=== PATIENT | female | born 1990 | race Caucasian/White ===

== ENCOUNTER 2016-09-24 21:54 | Inpatient (IN) | payer OTHER ==
[~2016-09-24] VITALS: Ht 160 cm; Wt 61.2 kg
[2016-09-24 22:28] LABS: BASOPHIL % 0.4 % (0-2); PLATELET COUNT 349 x10^3mcL (130-400); RED CELL DISTRIBUTION WIDTH 13.6 % (11.5-14.5)
[2016-09-24 22:43] LABS: CALCIUM 8.3 mg/dL (8.5-10.1); CARBON DIOXIDE 26.9 mmol/L (21-32); CHLORIDE SERUM 108 mmol/L (98-107); CREATININE SERUM 0.6 mg/dL (0.6-1.0); GFR1 > 60 mL/min; GLUCOSE SERUM 104 mg/dL (74-106); POTASSIUM SERUM 3.6 mmol/L (3.5-5.1); SODIUM SERUM 146 mmol/L (136-145)
[2016-09-24 22:50] LABS: ALBUMIN 3.8 g/dL (3.4-5.0); ALKALINE PHOSPHATASE 68 U/L (46-116); ALT/SGPT 26 U/L (14-59); AST/SGOT 23 U/L (15-37); BILIRUBIN TOTAL 0.4 mg/dL (0.20-1.00)
[2016-09-25 01:51] LABS: T3 TOTAL 0.79 ng/mL
[2016-09-25 01:59] LABS: FREE T4 1.09 ng/dL (0.76-1.46); FREE THYROXINE INDEX 2.5 ug/dL (1.4-4.5); T4(THYROXINE) 7.2 ug/dL (4.7-13.3)
[2016-09-25 02:01] VITALS: BP 104/71
[2016-09-25 02:03] LABS: PHOSPHOROUS 4.1 mg/dL (2.5-4.9)
[2016-09-25 02:07] LABS: CHOLESTEROL/HDL RATIO 2.1
[2016-09-25 05:01] LABS: CARBON DIOXIDE 27.4 mmol/L (21-32); CHLORIDE SERUM 109 mmol/L (98-107); CREATININE SERUM 0.5 mg/dL (0.6-1.0); GFR1 > 60 mL/min; GLUCOSE SERUM 88 mg/dL (74-106); POTASSIUM SERUM 3.4 mmol/L (3.5-5.1); SODIUM SERUM 145 mmol/L (136-145)
[2016-09-25 05:05] LABS: BASOPHIL % 0.4 % (0-2); PLATELET COUNT 298 x10^3mcL (130-400); RED CELL DISTRIBUTION WIDTH 13.4 % (11.5-14.5)
[2016-09-25 07:08] VITALS: BP 113/59
[2016-09-25 07:53] LABS: microscopic required? NO
[2016-09-25 09:27] LABS: urine erythrocyte NEGATIVE (NEGATIVE)
[2016-09-25 09:33] LABS: AMPHETAMINE QUAL UR NONE DETECTED (NEG <=1000)
[2016-09-25 09:54] VITALS: BP 96/57
[2016-09-25 13:07] VITALS: BP 110/64
[2016-09-25 17:00] VITALS: BP 100/63
[2016-09-25] MEDS ORDERED: FLUOXETINE HYDR20 M2 PO (19:43)
== END 2016-09-25 20:09 | disposition left against medical advice (07) | DRG 91 ==
LOC: ED 21:54 → DU 23:56
PROVIDERS: Emergency Medicine; ADMIT Family Medicine
DX: G92 Toxic encephalopathy (principal); K85.90 Acute pancreatitis without necrosis or infection, unspecified; E87.0 Hyperosmolality and hypernatremia; R45.851 Suicidal ideations; E87.1 Hypo-osmolality and hyponatremia; F33.1 Major depressive disorder, recurrent, moderate; F19.10 Other psychoactive substance abuse, uncomplicated; F10.229 Alcohol dependence with intoxication, unspecified; Z87.898 Personal history of other specified conditions; E87.8 Other disorders of electrolyte and fluid balance, not elsewhere classified; F32.9 Major depressive disorder, single episode, unspecified; F11.10 Opioid abuse, uncomplicated
CPT/HCPCS: 80307; 83880; 84439; G0480; J2405; J3411; J3475; J3490; J7030